=== PATIENT | male | born 1960 | race Caucasian/White ===

== ENCOUNTER 2017-07-14 12:51 | Inpatient (IN) | payer OTHER ==
[2017-07-14 14:52] VITALS: BMI 28.8
--- NOTE | 2017-07-14 17:21 | HP ---
CIWA Score - CIWA Score Nausea/Vomitin-Mild Nausea/No Vomiting Muscle Tremors: None Anxiety: 3 Agitation: 2 Paroxysmal Sweats: 3 Orientation: 0-Oriented Tacttile Disturbances: 0-None Auditory Disturbances: 0-None Visual Disturbances: 0-None Headache: 3-Moderate CIWA-Ar Total Score: 12 Admission [facility] Chief Complaint: Patient presents for BZO withdrawal symptoms. Allergies/Adverse Reactions: Allergies Allergy/AdvReac Type Severity Reaction Status Date / Time No Known Allergies Allergy Verified 07/14/17 16:40 History of Present Illness: Patient presents for BZO withdrawal symptoms. Started taking Klonipin and Xanax in 2015 for panic attacks and Agoraphobia. Daily dose of prescribed Klonipin 1.5mg daily and prescribed by Dr. Saloni Torres. Patient starting buying non- prescription klonipin/xanax when he ran out of medication.Takes up to 6mg daily. Last dose of Klonipin last night. He also is in Methadone program at [facility] and is currently being tapered off methadone. Has letter from stating current dose in 20mg daily. Dose still pending verification from RN. Denies PMH. No reports of seizures from medication use or withdrawal. Denies suicidal ideation and attempts. - Ebola screening Have you traveled outside of the country in the last 21 days: No Have you had contact with anyone from an Ebola affected area: No Have you been sick,other than usual withdrawal symptoms: No - Review of Systems Constitutional: Night Sweats, Changes in sleep, Unexplained wgt Loss EENT: reports: Nose Congestion Respiratory: reports: No Symptoms reported Cardiac: reports: No Symptoms Reported GI: reports: Diarrhea, Nausea, Abdominal cramping : reports: No Symptoms Reported Musculoskeletal: reports: Back Pain, Muscle Pain Integumentary: reports: Flushing Neuro: reports: Headache Endocrine: reports: Flushing, Unexplained Weight Loss Hematology: reports: No Symptoms Reported Psychiatric: reports: Orientated x3, Anxious, Depressed Patient History - Patient Medical History Hx Anemia: No Hx Asthma: No Hx Chronic Obstructive Pulmonary Disease (COPD): No Hx Cancer: No Hx Cardiac Disorders: No Hx Congestive Heart Failure: No Hx Hypertension: No Hx Hypercholesterolemia: No Hx Pacemaker: No HX Cerebrovascular Accident: No Hx Seizures: No Hx Dementia: No Hx Diabetes: No Hx Gastrointestinal Disorders: No Hx Liver Disease: No Hx Genitourinary Disorders: No Hx Sexually Transmitted Disorders: No Hx Renal Disease (ESRD): No Hx Thyroid Disease: No Hx Human Immunodeficiency Virus (HIV): No Hx Hepatitis C: No Hx Depression: No Hx Suicide Attempt: No Hx Bipolar Disorder: No Hx Schizophrenia: No - Patient Surgical History Past Surgical History: No Hx Neurologic Surgery: No Hx Cataract Extraction: No Hx Cardiac Surgery: No Hx Lung Surgery: No Hx Breast Surgery: No Hx Breast Biopsy: No Hx Abdominal Surgery: No Hx Appendectomy: No Hx Cholecystectomy: No Hx Genitourinary Surgery: No Hx Section: No Hx Orthopedic Surgery: No Anesthesia Reaction: No - PPD History Previous Implant?: Yes Documented Results: Negative w/o proof - Smoking Cessation Smoking history: Current every day smoker Aproximately how many cigarettes per day: 8 Hx Chewing Tobacco Use: No Initiated information on smoking cessation: Yes 'Breaking Loose' booklet given: 07/14/17 - Substance & Tx. History Hx Alcohol Use: No Hx Substance Use: Yes Substance Use Type: Tranquilizers (Xanax, Klonipin) Hx Substance Use Treatment: Yes (In MMTP at [facility]) - Substances Abused Alprazolam (Xanax) Route: Oral Frequency: Daily Amount used: 4mg Age of first use: 54 Date of Last Use: 07/13/17 Benzodiazepine (Klonopin) Route: Oral Frequency: Daily Amount used: 6mg Age of first use: 54 Date of Last Use: 07/13/17 Family Disease History - Family Disease History Family Disease History: [place]: Father (GI cancer, ), Other: Mother ( dementia, alive) Admission Physical Exam [facility] - Vital Signs Vital Signs: Vital Signs - 24 hr 07/14/17 14:49 Temperature 96.4 F L Pulse Rate 95 H Respiratory 20 Rate Blood Pressure 137/74 - Physical General Appearance: Yes: Appropriately Dressed, Irritable, Sweating, Anxious HEENTM: Yes: EOMI, Hearing grossly Normal, Normal ENT Inspection, Normocephalic , Normal Voice, ALONDRA, Nasal Congestion Respiratory: Yes: Chest Non-Tender, Lungs Clear, Normal Breath Sounds Neck: Yes: No masses,lesions,Nodules, Supple Breast: Yes: Breast Exam Deferred Cardiology: Yes: Regular Rhythm, Regular Rate, S1, S2 Abdominal: Yes: Normal Bowel Sounds, Non Tender, Soft Genitourinary: Yes: Within Normal Limits Back: Yes: Muscle Spasm Musculoskeletal: Yes: Back pain, Muscle Pain Extremities: Yes: Normal Capillary Refill, Normal Inspection, Non-Tender Neurological: Yes: machine molder II-XII NML intact, Fully Oriented, Alert, Depressed Affect Integumentary: Yes: Normal Color, Warm, Moist Lymphatic: Yes: Within Normal Limits Cleared for Admission [facility] - Detox or Rehab [facility] Level of Care: Medically Managed Detox Regimen/Protocol: Valium [facility] Breath Alcohol Content Breath Alcohol Content: 0 Urine Drug Screen - Results Drug Screen Negative: No Urine Drug Screen Results: BZO-Benzodiazepines, MTD-Methadone, TCA-Tricyclic Antidepress Inpatient Rehab Admission - Initial Determination Are CD services needed?: Yes Free of communicable disease: Yes Not in need of hospitalization: Yes - Rehab Admission Criteria Previous failed treatment: Yes Poor recovery environment: Yes Comorbidities: Yes Lacks judgement: Yes
[2017-07-14] MEDS ORDERED: NICOTINE POLACRILEX 2 MG GUM BC PRN (17:38)
[2017-07-14] MEDS ORDERED: LOPERAMIDE HCL 2 MG CAPSULE PO PRN (17:38)
[2017-07-14] MEDS ORDERED: guaiFENesin/D-METHORPHAN HB 10 ML UNIT-DOSE CUPS PO PRN (17:38)
[2017-07-14] MEDS ORDERED: IBUPROFEN 400 MG TABLET (FP) PO PRN (17:38)
[2017-07-14] MEDS ORDERED: P-EPHED 60MG/TRIPROLIDI 2.5MG TABLET PO PRN (17:38)
[2017-07-14] MEDS ORDERED: ACETAMINOPHEN 325 MG TABLET (FP) PO PRN (17:38)
[2017-07-14] MEDS ORDERED: MAGNESIUM CITRATE 300 ML BOTTLE PO PRN (17:38)
[2017-07-14] MEDS ORDERED: MAGNESIUM HYDROX 2400MG/30ML ORAL SUSPENSION 30 ML CUP PO PRN (17:38)
[2017-07-14] MEDS ORDERED: hydrOXYzine PAMOATE 50 MG CAPSULE (FP) PO PRN (17:38)
[2017-07-14] MEDS ORDERED: MENTHOL/PHENOL 1 EACH UD MM PRN (17:38)
[2017-07-14] MEDS ORDERED: diazePAM 5 MG TABLET PO ONE (18:30)
[2017-07-14 22:02] LABS: URINE APPEARANCE TURBID; URINE BLOOD NEGATIVE (NEGATIVE); URINE COLOR YELLOW; URINE GLUCOSE (UA) NEGATIVE (NEGATIVE); URINE KETONE NEGATIVE (NEGATIVE); URINE LEUK ESTERASE NEGATIVE (NEGATIVE); URINE NITRITE NEGATIVE (NEGATIVE)
[2017-07-14 22:12] LABS: URINE PROTEIN 1+ (NEGATIVE)
[2017-07-14 22:16] LABS: URINE BACTERIA MANY /hpf (NONE SEEN); URINE MUCUS MANY
[2017-07-14] MEDS: MELATONIN 5 MG TABLETS PO PRN (22:16)
[2017-07-14] MEDS: THIAMINE HCL 100 MG TABLET (FP) PO SCH (22:16)
[2017-07-14] MEDS: diazePAM 5 MG TABLET PO SCH (22:16)
[2017-07-15] MEDS: diazePAM 5 MG TABLET PO SCH ×3 (05:21→22:23)
[2017-07-15] MEDS: METHADONE HCL 10 MG TABLET PO SCH (07:47)
[2017-07-15] MEDS: diazePAM 5 MG TABLET PO PRN ×2 (09:10→13:15)
--- NOTE | 2017-07-15 10:09 | CONSULT ---
[facility] Psychiatric Consult - Data Date of interview: 07/15/17 Admission source: [facility] Identifying data: Pt. is a 56 year old single [place] Male, father of one, collecting SSI, and living with mother. This is patient's first admission to [facility]. Pt. admitted to for Benzodiazepine dependence. Substance Abuse History: Following information confirmed with Mr. Randolph: Smoking Cessation. Smoking history: Current every day smoker. Aproximately how many cigarettes per day: 8. Hx Chewing Tobacco Use: No. Initiated information on smoking cessation: Yes. 'Breaking Loose' booklet given: . - Substance & Tx. History. Hx Alcohol Use: No. Hx Substance Use: Yes. Substance Use Type: Tranquilizers (Xanax, Klonipin). Hx Substance Use Treatment : Yes (In [facility]MTP at [facility]). - Substances Abused. Alprazolam (Xanax). Route: Oral. Frequency: Daily. Amount used: 4mg. Age of first use: 54. Date of Last Use: 07/13/17. Benzodiazepine (Klonopin). Route: Oral. Frequency: Daily. Amount used: 6mg. Age of first use: 54. Date of Last Use: 07/13/17. Family Disease History Medical History: Denies. Psychiatric History: Pt. denies h/o psychiatric hospitalizations and suicide attempts. Outpatient care is provided by [facility] outpatient clinic. Pt. reports a h/o anxiety and has been prescribed paxil 20mg and klonopin 1mg and Gabapentin 300mg. Pt. reports nonadherence to the paxil and gabapentin. Reports taking klonopin but no longer wants to continue accepting medication due to lessening of his anxiety. As per pharmacy claims patients most recent prescription of paxil 20mg and gabapentin 300mg were on 02/02/17. Most recent klonopin prescription was on 05/19/17. Physical/Sexual Abuse/Trauma History: Denies. Mental Status Exam - Mental Status Exam Alert and Oriented to: Time, Place, Person Cognitive Function: Good Patient Appearance: Well Groomed Mood: Hopeful Affect: Appropriate Patient Behavior: Appropriate, Cooperative Speech Pattern: Clear, Appropriate Voice Loudness: Normal Thought Process: Goal Oriented Thought Disorder: Not Present Hallucinations: Denies Suicidal Ideation: Denies Homicidal Ideation: Denies Insight/Judgement: Poor Sleep: Fair Appetite: Fair Muscle strength/Tone: Normal Gait/Station: Normal Psychiatric Findings - Problem List ([place] 1, 2,3) (1) Anxiety disorder Current Visit: Yes Status: Acute Comment: Self reports. (2) Nicotine dependence Current Visit: Yes Status: Acute Qualifiers: Nicotine product type: cigarettes Substance use status: unspecified nicotine-induced disorder Qualified Code(s): F17.219 - Nicotine dependence, cigarettes, with unspecified nicotine-induced disorders (3) Sedative hypnotic or anxiolytic dependence Current Visit: Yes Status: Acute - Initial Treatment Plan Initial Treatment Plan: Psychoeducation provided. Detoxification provided. Observation.
[2017-07-15 10:25] LABS: CHLORIDE 105 mmol/L (98-107); POTASSIUM 4.3 mmol/L (3.5-5.1); SODIUM 140 mmol/L (136-145)
[2017-07-15] MEDS: PRENATAL VITAMINS W/ FOLIC ACID TABLET (FP) PO SCH (10:26)
[2017-07-15] MEDS: NICOTINE 21 MG/24 HOURS TOPICAL PATCH TD SCH (10:27)
[2017-07-15 10:33] LABS: ALBUMIN 4.1 g/dl (3.4-5.0); ALK PHOS 80 U/L (45-117); ANION GAP 5 (8-16); BILIRUBIN,TOTAL 1.2 mg/dL (0.2-1.0); BLOOD UREA NITROGEN 16 mg/dL (7-18); CO2 30 mmol/L (21-32); GLUCOSE,RANDOM 89 mg/dL (74-106); SGOT/AST 23 U/L (15-37); SGPT/ALT 27 U/L (12-78); TOT PROT 7.3 g/dl (6.4-8.2)
[2017-07-15 10:38] LABS: HEMOGLOBIN 14.7 GM/dL (11.7-16.9); WHITE BLOOD COUNT 6.5 K/mm3 (4.0-10.0)
[2017-07-15 10:41] LABS: HEMATOCRIT 43.9 % (35.4-49); MCH 28.8 pg (25.7-33.7); MCHC 33.5 g/dl (32.0-35.9); MEAN CELL VOLUME 85.8 fl (80-96); MEAN PLT VOLUME 9.1 fl (7.5-11.1); PLATELET COUNT 194 K/MM3 (134-434); RBC 5.12 M/mm3 (4.00-5.60); RDW 13.2 % (11.9-15.9)
--- NOTE | 2017-07-15 13:32 | EKG ---
Test Reason : Blood Pressure : / mmHG Vent. Rate : 079 BPM Atrial Rate : 079 BPM P-R Int : 092 ms QRS Dur : 078 ms QT Int : 372 ms P-R-T Axes : -26 034 032 degrees QTc Int : 426 ms SINUS RHYTHM WITH SHORT OH OTHERWISE NORMAL ECG NO PREVIOUS ECGS AVAILABLE Confirmed by CANDACE CORTEZ, DAREK ([id number]) on 07/15/2017 1:32:01 PM Referred By: Confirmed By:DAREK MARIA MD
--- NOTE | 2017-07-15 15:43 | PN ---
[facility] CIWA - CIWA Score Nausea/Vomitin-No Nausea/No Vomiting Muscle Tremors: 4-Moderate,w/Arms Extend Anxiety: 3 Agitation: 3 Paroxysmal Sweats: 3 Orientation: 0-Oriented Tacttile Disturbances: 2-Mild Itch/Numbness/Burn Auditory Disturbances: 2-Mild Harshness/Frighten Visual Disturbances: 0-None Headache: 0-None Present CIWA-Ar Total Score: 17 BHS Progress Note (SOAP) Subjective: Stomach Cramping, Sweating, Tremors, Constipation, Interrupted Sleep. Objective: PATIENT A & O X 3, OBSERVED AMBULATING ON UNIT. NO ACUTE DISTRESS. 07/15/17 15:41 Vital Signs Temperature 97.3 F L 07/15/17 13:14 Pulse Rate 90 07/15/17 13:14 Respiratory Rate 20 07/15/17 13:14 Blood Pressure 117/75 07/15/17 13:14 O2 Sat by Pulse Oximetry (%) Laboratory Tests 07/14/17 07/15/17 07/15/17 19:00 07:00 07:00 WBC 6.5 RBC 5.12 Hgb 14.7 Hct 43.9 MCV 85.8 MCH 28.8 MCHC 33.5 RDW 13.2 Plt Count 194 MPV 9.1 Sodium Potassium Chloride Carbon Dioxide Anion Gap BUN Creatinine Creat Clearance w eGFR Random Glucose Calcium Total Bilirubin AST ALT Alkaline Phosphatase Total Protein Albumin Urine Color Yellow Urine Appearance Turbid Urine pH 5.0 Ur Specific [place] 1.032 Urine Protein 1+ H Urine Glucose (UA) Negative Urine Ketones Negative Urine Blood Negative Urine Nitrite Negative Urine Bilirubin 2.0 Urine Urobilinogen 2.0 Ur Leukocyte Esterase Negative Urine WBC (Auto) 41 Urine RBC (Auto) 7 Urine Bacteria Many Urine Mucus Many HIV 1&2 Antibody Screen Negative HIV P24 Antigen Negative 07/15/17 07:00 WBC RBC Hgb Hct MCV MCH MCHC RDW Plt Count MPV Sodium 140 Potassium 4.3 Chloride 105 Carbon Dioxide 30 Anion Gap 5 L BUN 16 Creatinine 1.0 Creat Clearance w eGFR > 60 Random Glucose 89 Calcium 9.0 Total Bilirubin 1.2 H AST 23 ALT 27 Alkaline Phosphatase 80 Total Protein 7.3 Albumin 4.1 Urine Color Urine Appearance Urine pH Ur Specific [place] Urine Protein Urine Glucose (UA) Urine Ketones Urine Blood Urine Nitrite Urine Bilirubin Urine Urobilinogen Ur Leukocyte Esterase Urine WBC (Auto) Urine RBC (Auto) Urine Bacteria Urine Mucus HIV 1&2 Antibody Screen HIV P24 Antigen LABS NOTED. RPR RESULT PENDING. 07/15/17 15:42 Assessment: 07/15/17 15:41 WITHDRAWAL SYMPTOMS. Plan: CONTINUE DETOX. INCREASE DAILY PO FLUID INTAKE. PRN MOM FOR CONSTIPATION.
[2017-07-15] MEDS: MELATONIN 5 MG TABLETS PO PRN (22:23)
[2017-07-15] MEDS: THIAMINE HCL 100 MG TABLET (FP) PO SCH (22:23)
[2017-07-16] MEDS: MAG HYDROX/AL HYDROX/SIMETH 30 ML UNIT-DOSE CUP PO PRN (04:33)
[2017-07-16] MEDS: METHADONE HCL 10 MG TABLET PO SCH (05:26)
[2017-07-16] MEDS: diazePAM 5 MG TABLET PO PRN ×2 (05:26→16:43)
[2017-07-16] MEDS: NICOTINE 21 MG/24 HOURS TOPICAL PATCH TD SCH (09:51)
[2017-07-16] MEDS: PRENATAL VITAMINS W/ FOLIC ACID TABLET (FP) PO SCH (09:51)
[2017-07-16] MEDS: diazePAM 5 MG TABLET PO SCH ×2 (09:51→22:15)
--- NOTE | 2017-07-16 16:27 | PN ---
[facility] CIWA - CIWA Score Nausea/Vomitin-No Nausea/No Vomiting Muscle Tremors: 3 Anxiety: 4-Mod. Anxious/Guarded Agitation: 3 Paroxysmal Sweats: 2 Orientation: 0-Oriented Tacttile Disturbances: 2-Mild Itch/Numbness/Burn Auditory Disturbances: 2-Mild Harshness/Frighten Visual Disturbances: 0-None Headache: 0-None Present CIWA-Ar Total Score: 16 BHS Progress Note (SOAP) Subjective: Tremors, Anxious, Stomach Cramping, Constipation. Objective: PATIENT A & O X 3, OBSERVED AMBULATING ON UNIT. NO ACUTE DISTRESS. 07/16/17 16:25 Vital Signs Temperature 95.9 F L 07/16/17 09:13 Pulse Rate 84 07/16/17 09:13 Respiratory Rate 20 07/16/17 09:13 Blood Pressure 115/76 07/16/17 09:13 O2 Sat by Pulse Oximetry (%) Laboratory Tests 07/14/17 07/15/17 07/15/17 19:00 07:00 07:00 WBC 6.5 RBC 5.12 Hgb 14.7 Hct 43.9 MCV 85.8 MCH 28.8 MCHC 33.5 RDW 13.2 Plt Count 194 MPV 9.1 Sodium Potassium Chloride Carbon Dioxide Anion Gap BUN Creatinine Creat Clearance w eGFR Random Glucose Calcium Total Bilirubin AST ALT Alkaline Phosphatase Total Protein Albumin Urine Color Yellow Urine Appearance Turbid Urine pH 5.0 Ur Specific [place] 1.032 Urine Protein 1+ H Urine Glucose (UA) Negative Urine Ketones Negative Urine Blood Negative Urine Nitrite Negative Urine Bilirubin 2.0 Urine Urobilinogen 2.0 Ur Leukocyte Esterase Negative Urine WBC (Auto) 41 Urine RBC (Auto) 7 Urine Bacteria Many Urine Mucus Many RPR Titer HIV 1&2 Antibody Screen Negative HIV P24 Antigen Negative 07/15/17 07/15/17 07:00 07:00 WBC RBC Hgb Hct MCV MCH MCHC RDW Plt Count MPV Sodium 140 Potassium 4.3 Chloride 105 Carbon Dioxide 30 Anion Gap 5 L BUN 16 Creatinine 1.0 Creat Clearance w eGFR > 60 Random Glucose 89 Calcium 9.0 Total Bilirubin 1.2 H AST 23 ALT 27 Alkaline Phosphatase 80 Total Protein 7.3 Albumin 4.1 Urine Color Urine Appearance Urine pH Ur Specific [place] Urine Protein Urine Glucose (UA) Urine Ketones Urine Blood Urine Nitrite Urine Bilirubin Urine Urobilinogen Ur Leukocyte Esterase Urine WBC (Auto) Urine RBC (Auto) Urine Bacteria Urine Mucus RPR Titer Nonreactive HIV 1&2 Antibody Screen HIV P24 Antigen LABS NOTED. Assessment: 07/16/17 16:26 WITHDRAWAL SYMPTOMS. Plan: CONTINUE DETOX. INCREASE DAILY PO FLUID INTAKE. PRN MOM FOR CONSTIPATION.
[2017-07-16] MEDS: THIAMINE HCL 100 MG TABLET (FP) PO SCH (22:15)
[2017-07-16] MEDS: MELATONIN 5 MG TABLETS PO PRN (22:16)
[2017-07-17] MEDS: METHADONE HCL 10 MG TABLET PO SCH (05:22)
[2017-07-17] MEDS: diazePAM 5 MG TABLET PO PRN (05:23)
[2017-07-17] MEDS: diazePAM 5 MG TABLET PO SCH ×2 (10:36→22:33)
[2017-07-17] MEDS: NICOTINE 21 MG/24 HOURS TOPICAL PATCH TD SCH (10:36)
[2017-07-17] MEDS: PRENATAL VITAMINS W/ FOLIC ACID TABLET (FP) PO SCH (10:36)
--- NOTE | 2017-07-17 16:20 | PN ---
BHS Progress Note (SOAP) Subjective: Stomach Cramping (mild), anxious. Objective: PATIENT A & O X 3, OBSERVED AMBULATING ON UNIT. NO ACUTE DISTRESS. 07/17/17 16:19 Vital Signs Temperature 96.2 F L 07/17/17 15:31 Pulse Rate 75 07/17/17 15:31 Respiratory Rate 20 07/17/17 15:31 Blood Pressure 130/80 07/17/17 15:31 O2 Sat by Pulse Oximetry (%) Laboratory Tests 07/14/17 07/15/17 07/15/17 19:00 07:00 07:00 WBC 6.5 RBC 5.12 Hgb 14.7 Hct 43.9 MCV 85.8 MCH 28.8 MCHC 33.5 RDW 13.2 Plt Count 194 MPV 9.1 Sodium Potassium Chloride Carbon Dioxide Anion Gap BUN Creatinine Creat Clearance w eGFR Random Glucose Calcium Total Bilirubin AST ALT Alkaline Phosphatase Total Protein Albumin Urine Color Yellow Urine Appearance Turbid Urine pH 5.0 Ur Specific [place] 1.032 Urine Protein 1+ H Urine Glucose (UA) Negative Urine Ketones Negative Urine Blood Negative Urine Nitrite Negative Urine Bilirubin 2.0 Urine Urobilinogen 2.0 Ur Leukocyte Esterase Negative Urine WBC (Auto) 41 Urine RBC (Auto) 7 Urine Bacteria Many Urine Mucus Many RPR Titer HIV 1&2 Antibody Screen Negative HIV P24 Antigen Negative 07/15/17 07/15/17 07:00 07:00 WBC RBC Hgb Hct MCV MCH MCHC RDW Plt Count MPV Sodium 140 Potassium 4.3 Chloride 105 Carbon Dioxide 30 Anion Gap 5 L BUN 16 Creatinine 1.0 Creat Clearance w eGFR > 60 Random Glucose 89 Calcium 9.0 Total Bilirubin 1.2 H AST 23 ALT 27 Alkaline Phosphatase 80 Total Protein 7.3 Albumin 4.1 Urine Color Urine Appearance Urine pH Ur Specific [place] Urine Protein Urine Glucose (UA) Urine Ketones Urine Blood Urine Nitrite Urine Bilirubin Urine Urobilinogen Ur Leukocyte Esterase Urine WBC (Auto) Urine RBC (Auto) Urine Bacteria Urine Mucus RPR Titer Nonreactive HIV 1&2 Antibody Screen HIV P24 Antigen LABS NOTED. Assessment: 07/17/17 16:20 WITHDRAWAL SYMPTOMS. Plan: CONTINUE DETOX. PRN [place] FOR STOMACH CRAMPING.
[2017-07-17] MEDS: THIAMINE HCL 100 MG TABLET (FP) PO SCH (22:33)
[2017-07-17] MEDS: MELATONIN 5 MG TABLETS PO PRN (22:34)
[2017-07-18] MEDS: METHADONE HCL 10 MG TABLET PO SCH (05:37)
[2017-07-18 06:17] VITALS: BP 113/72; PULSE 83; TEMP 96.8
[2017-07-18] MEDS: MAG HYDROX/AL HYDROX/SIMETH 30 ML UNIT-DOSE CUP PO PRN (06:25)
--- NOTE | 2017-07-18 08:58 | DS ---
[facility] Detox Discharge Summary Admission Date: 07/14/17 Discharge Date: 07/18/17 - History Present History: Sedative Dependence - Physical Exam Results Vital Signs: Vital Signs Temperature 96.8 F L 07/18/17 06:16 Pulse Rate 83 07/18/17 06:16 Respiratory Rate 18 07/18/17 06:16 Blood Pressure 113/72 07/18/17 06:16 O2 Sat by Pulse Oximetry (%) - Treatment Hospital Course: Detox Protocol Followed, Detoxed Safely, Responded well, Discharged Condition Good, Rehab Referral Accepted - Medication Discharge Medications: Ambulatory Orders NK [No Known Home Medication] 07/14/17 - Diagnosis (1) Anxiety disorder Current Visit: Yes Status: Chronic (2) Depressed affect Current Visit: Yes Status: Acute (3) Nicotine dependence Current Visit: Yes Status: Chronic Qualifiers: Nicotine product type: cigarettes Substance use status: uncomplicated Qualified Code(s): F17.210 - Nicotine dependence, cigarettes, uncomplicated (4) Panic attacks Current Visit: Yes Status: Acute (5) Sedative hypnotic or anxiolytic dependence Current Visit: Yes Status: Chronic - AMA Did Patient Leave Against Medical Advice: No
[2017-07-18] MEDS ORDERED: diazePAM 5 MG TABLET PO SCH (10:00)
== END 2017-07-18 09:43 | disposition home or self-care (01) | DRG 897 ==
LOC: YASAS 12:51 → Y3N 16:59
PROVIDERS: ADMIT Internal Medicine; ATTEND Internal Medicine
PROC: HZ2ZZZZ Detoxification Services for Substance Abuse Treatment (ICD-10-PCS; principal; 2017-07-14)
DX: F13.230 Sedative, hypnotic or anxiolytic dependence with withdrawal, uncomplicated (principal); F17.210 Nicotine dependence, cigarettes, uncomplicated; F41.9 Anxiety disorder, unspecified; F41.0 Panic disorder [episodic paroxysmal anxiety]; F32.9 Major depressive disorder, single episode, unspecified
CPT/HCPCS: 36415; 80053; 81003; 81015; 85027; 86593; 87389; 93005; 93010